=== PATIENT | female | born 1985 | race Caucasian/White ===

== ENCOUNTER 2017-06-05 19:48 | Outpatient (CLI) | payer OTHER ==
[~2017-06-05] VITALS: Ht 162.6 cm; Wt 73.2 kg
[~2017-06-05 19:48] MED LIST: DILAUDID2 MG PO; MIRENA52 MG IY; MOTRIN400 MG PO; MOTRIN800 MG PO; PROCARDIA20 MG PO; PROTEIN POWDER454 G1 PO; VIBRAMYCIN100 MG PO; [UNRECOGNIZED DRUG - REMARK] PO
[2017-06-05 19:59] VITALS: BP 126/68
[2017-06-05 20:23] LABS: EOSINOPHIL (%) 1.5 % (0-5); EOSINOPHIL COUNT 0.2 K/uL (0-0.3); HEMATOCRIT 38.2 % (36.0-46.0); IMMATURE GRANULOCYTE (%) 0.7 % (0.0-0.7); IMMATURE GRANULOCYTE COUNT 0.1 K/uL; INSTRUMENT ABS NEUTROPHIL CT 8.9 K/uL; LYMPHOCYTE COUNT 2.3 K/uL (1.0-2.8); MCHC 36.6 G/DL (30.0-36.0); MCV 92.7 FL (83-99); MEAN PLAT.VOLUME 11.3 uM^3 (9.5-12.4); MONOCYTE (%) 5.3 % (3-12); MONOCYTE COUNT 0.6 K/uL (0-0.8); NEUTROPHIL (%) 73.6 % (45-76); NEUTROPHIL COUNT 8.9 K/uL (1.8-6.4); PLATELET COUNT 144 K/uL (156-360); RBC DIS.WIDTH-SD 44.2 % (39-53); RED BLOOD COUNT 4.12 M/uL (3.80-5.20)
[2017-06-05 21:05] VITALS: BP 105/61
[2017-06-05 21:22] LABS: DRSB INTERNAL CONTROL PASS; PROBE CHECK PASS; SPECIMEN PROCESSING CONTROL PASS
[2017-06-05 22:00] VITALS: BP 109/56
[2017-06-05 23:09] VITALS: BP 111/53
[2017-06-06] VITALS (7 sets, daily range): BP systolic 86–120; BP diastolic 47–65
[2017-06-06] MEDS ORDERED: MAKENA250 MG/1 M IM (06:07)
[2017-06-06] MEDS ORDERED: SYNTHROID75 MCG PO (06:07)
[2017-06-06] MEDS ORDERED: PRENATAL TABLE1 EAC3 PO (06:08)
[2017-06-06] MEDS ORDERED: CLARITIN10 M3 PO (06:08)
[2017-06-06 09:29] LABS: EOSINOPHIL (%) 0 % (0-5); HEMATOCRIT 36.4 % (36.0-46.0); IMMATURE GRANULOCYTE (%) 0.6 % (0.0-0.7); IMMATURE GRANULOCYTE COUNT 0.1 K/uL; LYMPHOCYTE COUNT 0.7 K/uL (1.0-2.8); MCHC 35.7 G/DL (30.0-36.0); MCV 95.3 FL (83-99); MEAN PLAT.VOLUME 11.1 uM^3 (9.5-12.4); MONOCYTE (%) 1.5 % (3-12); MONOCYTE COUNT 0.2 K/uL (0-0.8); PLATELET COUNT 141 K/uL (156-360); RBC DIS.WIDTH-CV 13.1 % (11.8-14.6); RBC DIS.WIDTH-SD 45.2 % (39-53); RED BLOOD COUNT 3.82 M/uL (3.80-5.20); WHITE BLOOD COUNT 11.9 K/uL (4.1-10.2)
== END 2017-06-06 15:24 | disposition home or self-care (01) ==
LOC: LDRP-OP 19:48 → 2WEST 19:50 → LDRP-OP 08-10 14:11
PROVIDERS: Nurse Practitioner; Obstetrics & Gynecology Gynecology
DX: O60.03 Preterm labor without delivery, third trimester (principal); Z3A.00 Weeks of gestation of pregnancy not specified; O34.219 Maternal care for unspecified type scar from previous cesarean delivery
CPT/HCPCS: 59025; 85025; 86850; 86900; 86901; 87086; 87653; G0378; J0702; J3105; J7120

== ENCOUNTER 2017-06-08 20:24 | Outpatient (CLI) | payer OTHER ==
[~2017-06-08] VITALS: Ht 162.6 cm; Wt 73.0 kg
[~2017-06-08 20:24] MED LIST changes: +CLARITIN10 M3 PO; +MAKENA250 MG/1 M IM; +PRENATAL TABLE1 EAC3 PO; +SYNTHROID75 MCG PO
[2017-06-08 20:42] VITALS: BP 113/57
[2017-06-08 21:18] LABS: EOSINOPHIL (%) 1.2 % (0-5); EOSINOPHIL COUNT 0.2 K/uL (0-0.3); HEMATOCRIT 36.7 % (36.0-46.0); IMMATURE GRANULOCYTE (%) 1.5 % (0.0-0.7); IMMATURE GRANULOCYTE COUNT 0.2 K/uL; LYMPHOCYTE COUNT 2.1 K/uL (1.0-2.8); MCH 32.5 PG (29.0-34.0); MCHC 34.3 G/DL (30.0-36.0); MCV 94.6 FL (83-99); MEAN PLAT.VOLUME 11.2 uM^3 (9.5-12.4); NEUTROPHIL (%) 72.2 % (45-76); PLATELET COUNT 166 K/uL (156-360); RBC DIS.WIDTH-SD 44.9 % (39-53); RED BLOOD COUNT 3.88 M/uL (3.80-5.20); WHITE BLOOD COUNT 12.4 K/uL (4.1-10.2)
[2017-06-08 23:22] VITALS: BP 101/56
[2017-06-08] MEDS ORDERED: TUMS500 MG PO (23:30)
[2017-06-09 02:12] VITALS: BP 117/62
[2017-06-09 07:57] VITALS: BP 107/66
== END 2017-06-09 11:49 | disposition home or self-care (01) ==
LOC: LDRP-OP 20:24 → 2WEST 20:25 → LDRP-OP 08-10 15:56
PROVIDERS: Obstetrics & Gynecology Gynecology
DX: O60.03 Preterm labor without delivery, third trimester (principal); Z3A.35 35 weeks gestation of pregnancy; O34.211 Maternal care for low transverse scar from previous cesarean delivery; O09.213 Supervision of pregnancy with history of pre-term labor, third trimester
CPT/HCPCS: 59025; 85025; 86850; 86900; 86901; G0378; J3105; J7120

== ENCOUNTER 2017-06-22 17:45 | Inpatient (IN) | payer OTHER ==
[~2017-06-22] VITALS: Ht 162.6 cm; Wt 71.4 kg
[~2017-06-22 17:45] MED LIST changes: +TUMS500 MG PO
[2017-06-22 18:15] VITALS: BP 101/66
[2017-06-22 18:41] LABS: EOSINOPHIL (%) 0.5 % (0-5); EOSINOPHIL COUNT 0.1 K/uL (0-0.3); HEMATOCRIT 40.1 % (36.0-46.0); IMMATURE GRANULOCYTE (%) 0.8 % (0.0-0.7); IMMATURE GRANULOCYTE COUNT 0.1 K/uL; INSTRUMENT ABS NEUTROPHIL CT 10.6 K/uL; LYMPHOCYTE COUNT 2.1 K/uL (1.0-2.8); MCH 32.6 PG (29.0-34.0); MCHC 35.2 G/DL (30.0-36.0); MCV 92.6 FL (83-99); MEAN PLAT.VOLUME 11.3 uM^3 (9.5-12.4); MONOCYTE (%) 5.6 % (3-12); MONOCYTE COUNT 0.8 K/uL (0-0.8); NEUTROPHIL (%) 77.5 % (45-76); NEUTROPHIL COUNT 10.6 K/uL (1.8-6.4); PLATELET COUNT 155 K/uL (156-360); RBC DIS.WIDTH-CV 12.8 % (11.8-14.6); RBC DIS.WIDTH-SD 43.8 % (39-53); RED BLOOD COUNT 4.33 M/uL (3.80-5.20); WHITE BLOOD COUNT 13.7 K/uL (4.1-10.2)
[2017-06-22 22:45] VITALS: BP 103/58
[2017-06-22 23:39] VITALS: BP 110/62
[2017-06-23] VITALS (11 sets, daily range): BP systolic 91–108; BP diastolic 44–69
[2017-06-23 07:17] LABS: EOSINOPHIL (%) 0.7 % (0-5); EOSINOPHIL COUNT 0.1 K/uL (0-0.3); HEMATOCRIT 35.5 % (36.0-46.0); IMMATURE GRANULOCYTE (%) 0.5 % (0.0-0.7); IMMATURE GRANULOCYTE COUNT 0.1 K/uL; INSTRUMENT ABS NEUTROPHIL CT 10.4 K/uL; LYMPHOCYTE COUNT 1.1 K/uL (1.0-2.8); MCHC 33.8 G/DL (30.0-36.0); MCV 94.7 FL (83-99); MEAN PLAT.VOLUME 11.4 uM^3 (9.5-12.4); MONOCYTE (%) 5.4 % (3-12); MONOCYTE COUNT 0.7 K/uL (0-0.8); NEUTROPHIL (%) 84.2 % (45-76); NEUTROPHIL COUNT 10.4 K/uL (1.8-6.4); PLATELET COUNT 134 K/uL (156-360); RBC DIS.WIDTH-CV 12.8 % (11.8-14.6); RBC DIS.WIDTH-SD 44.3 % (39-53); RED BLOOD COUNT 3.75 M/uL (3.80-5.20); WHITE BLOOD COUNT 12.3 K/uL (4.1-10.2)
[2017-06-24 02:54] VITALS: BP 103/62
[2017-06-24] MEDS ORDERED: IBUPROFEN800 MG PO (07:09)
[2017-06-24 07:41] VITALS: BP 100/58
== END 2017-06-24 16:46 | disposition home or self-care (01) | DRG 766 ==
LOC: LDRP-OP 17:45 → 2WEST 17:47 → LDRP-OP 08-10 11:52
PROVIDERS: Obstetrics & Gynecology Gynecology
PROC: 10D00Z1 Extraction of Products of Conception, Low, Open Approach (ICD-10-PCS; principal; 2017-06-22)
DX: O34.211 Maternal care for low transverse scar from previous cesarean delivery (principal); Z37.0 Single live birth; Z3A.37 37 weeks gestation of pregnancy; O99.284 Endocrine, nutritional and metabolic diseases complicating childbirth; E03.9 Hypothyroidism, unspecified; O69.81X0 Labor and delivery complicated by cord around neck, without compression, not applicable or unspecified
CPT/HCPCS: 85025; 86850; 86900; 86901; J0690; J2270; J2274; J2550; J2765; J7120